=== PATIENT | male | born 1975 | race African-American/Black ===

== ENCOUNTER 2017-11-29 23:52 | Emergency (ER) | payer OTHER ==
[~2017-11-29] VITALS: Ht 185.4 cm; Wt 115.7 kg
[2017-11-30] MEDS ORDERED: WATER PILL (00:02)
[2017-11-30] MEDS ORDERED: Norco 5mg/325mg tab ORAL ONE (00:15)
[2017-11-30] MEDS ORDERED: NAPROXEN500 M1 ORAL (01:15)
--- NOTE | 2017-11-30 01:16 | Emergency Room Report ---
History of Present Illness General Chief Complaint: Headache Source: Patient Present Illness HPI Is a 43-year-old male with no past medical history. He presents with chief complaint of headache for the last day. Throbbing in nature. Started on the left forehead behind her eye going to the back. No nausea no vomiting. No relief with Motrin. Usually get headaches but get better with qazg-jva-irondpl medication. No fever or chills. No focal deficit. Allergies: Coded Allergies: No Known Allergies (Unverified , 11/30/17) Patient History Past Medical History: see triage record, old chart reviewed Past Surgical History: none Pertinent Family History: none Social History: Denies: smoking Immunizations: other Reviewed Nursing Documentation: PMH: Agreed; PSxH: Agreed Nursing Documentation-PMH Hx Hypertension: Yes Review of Systems Eye: Denies: eye pain, blurred vision ENT: Denies: ear pain, nose congestion, throat swelling Respiratory: Denies: cough, shortness of breath Cardiovascular: Denies: chest pain, palpitations Gastrointestinal: Denies: abdominal pain, diarrhea, nausea, vomiting Musculoskeletal: Denies: back pain, joint pain Skin: Denies: rash Neurological: Reports: headache; Denies: numbness Endocrine: Denies: increased thirst, increased urine Hematologic/Lymphatic: Denies: easy bruising All Other Systems: negative except mentioned in HPI Physical Exam Vital Signs Date Time Temp Pulse Resp B/P (MAP) Pulse Ox O2 Delivery O2 Flow Rate FiO2 11/29/17 23:58 99.3 96 16 127/84 95 Room Air 99.3 vitals normal Sp02 EP Interpretation: reviewed, normal General Appearance: well appearing, no apparent distress, alert Head: normocephalic, atraumatic Eyes: bilateral eye PERRL, bilateral eye EOMI ENT: hearing grossly normal, normal pharynx Neck: full range of motion, supple, no meningismus Respiratory: chest non-tender, lungs clear, normal breath sounds Cardiovascular #1: regular rate, rhythm, no murmur Gastrointestinal: normal bowel sounds, non tender, no mass, no organomegaly, no bruit, non-distended Musculoskeletal: back normal, gait/station normal, normal range of motion Psychiatric: mood/affect normal Skin: warm/dry Medical Decision Making Diagnostic Impression: Primary Impression: Headache Qualified Codes: G44.209 - Tension-type headache, unspecified, not intractable ER Course Patient with headache. No evidence of bacterial meningitis, sepsis, pneumonia, CVA or bleed. Better now. We'll discharge home. CT/MRI/US Diagnostic Results CT/MRI/US Diagnostic Results : Imaging Test Ordered: CT head Impression negative per radiologist Last Vital Signs Date Time Temp Pulse Resp B/P (MAP) Pulse Ox O2 Delivery O2 Flow Rate FiO2 11/30/17 00:18 99.3 11/29/17 23:58 96 16 127/84 95 Room Air Status: improved Disposition: HOME, SELF-CARE Condition: Stable Scripts Naproxen* (NAPROXEN*) 500 Mg Tablet. 500 MG ORAL TWICE A DAY, #30 TAB Prov: DEEPAK ALFONSO M.D. 11/30/17 Referrals: ARISTIDES LINDSEY,REFERRING (PCP) Patient Instructions: General Headache Without Cause Additional Instructions: Follow-up with your in 2 to 3 days. Return if worse. DEEPAK ALFONSO M.D. Nov 30, 2017 01:16
[2017-11-30 01:20] VITALS: BP 122/84
[2017-11-30 01:22] VITALS: BP 122/84
--- NOTE | 2017-11-30 09:43 | Diagnostic Imaging Report ---
Indications: Headache for 3 days Technique: Spiral acquisitions obtained through the brain. Angled axial and coronal 5 x 5 mm slices were reconstructed. Total dose length product 1442 mGycm. CTDI vol(s) 70 mGy. Dose reduction achieved using automated exposure control Comparison: None. Findings: Ventricles are mildly prominent. There is a large patent cavum septum lucidum. Axial CSF spaces are within normal limits. No acute intracranial hemorrhage or edema. No mass effect or midline shift. Normal osman-white differentiation. Is intact calvarium. Visualized orbits and sinuses are unremarkable. Impression: Mildly prominent ventricles, probably due to central volume loss Negative for acute intracranial bleed or mass effect Incidental finding of patent cavum septum pellucidum This agrees with the preliminary interpretation provided overnight by [facility] service. The CT scanner at [facility] is accredited by the [employer] and the scans are performed using protocols designed to limit radiation exposure to as low as reasonably achievable to attain images of sufficient resolution adequate for diagnostic evaluation.
== END 2017-11-30 01:23 | disposition home or self-care (01) ==
LOC: EDBD 11-30 00:19 → EMR 11-30 00:19
DX: R51 Headache (principal); I10 Essential (primary) hypertension
CPT/HCPCS: 70450; 99284

== ENCOUNTER 2020-02-08 23:55 | Emergency (ER) | payer OTHER ==
[~2020-02-08] VITALS: Ht 185.4 cm; Wt 123.8 kg
[~2020-02-08 23:55] MED LIST: NAPROXEN500 M1 ORAL; WATER PILL
[2020-02-09 00:25] VITALS: BP 126/82
[2020-02-09] MEDS ORDERED: ZYRTEC10 MG ORAL (00:28)
[2020-02-09] MEDS ORDERED: POLYTRIM OP SOL10 ML BOTH EYES (00:28)
--- NOTE | 2020-02-09 00:33 | Emergency Room Report ---
History of Present Illness General Chief Complaint: Eye Problems Source: Patient Present Illness HPI Patient is a 44-year-old male who presents to the ER complaining of bilateral eye redness and irritation for the past 4 days. He states that he started with his left eye and has now moved to his right eye. He states that there watery and uncomfortable. He denies any visual changes. He states that he has had yellowish discharge from both of his eyes. He states that he does not wear contacts. He denies any fever or chills. 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 Patient History Reviewed Nursing Documentation: PMH: Agreed; PSxH: Agreed Nursing Documentation-PMH Hx Hypertension: Yes Review of Systems All Other Systems: negative except mentioned in HPI Physical Exam Vital Signs Date Time Temp Pulse Resp B/P (MAP) Pulse Ox O2 Delivery O2 Flow Rate FiO2 02/09/20 00:17 98.6 62 19 126/82 (97) 95 Room Air Sp02 EP Interpretation: reviewed, normal General Appearance: no apparent distress, alert, GCS 15, non-toxic Head: normocephalic, atraumatic Eyes: bilateral eye PERRL, bilateral eye EOMI, bilateral eye other - Bilateral conjunctival injection with yellowish discharge no photophobia no scleral icterus ENT: hearing grossly normal, normal pharynx, no angioedema, normal voice Neck: full range of motion, supple/symm/no masses Respiratory: chest non-tender, lungs clear Cardiovascular #1: regular rate, rhythm Gastrointestinal: non tender, overweight Rectal: deferred Musculoskeletal: back normal, gait/station normal Neurologic: motor strength/tone normal, coffee 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 After discussing risks and benefits of further diagnostics, treatment plans, as well as indications for and risks of admission, the patient is agreeable to being discharged home. I have explained that their evaluation and treatment in the emergency department today is an important step towards them achieving better health but that their evaluation today is not intended to replace further evaluation and treatment by a physician in their local clinic. I have explained that while the current findings suggest no immediate life threatening emergency they will require further evaluation and treatment by a physician of their choice in their area. They understand that it will be necessary for them to review the final reports of their ED visit with their clinic physician. We have reviewed indications for return to the Emergency Department. I have explained that additional time may need to pass and/or additional testing as an outpatient may be necessary before a definitive diagnosis can be made. They tell me they are willing to follow up as instructed within the timeframe I recommend. They appear to understand what we discussed. Additionally they understand that if they are unable to be seen by an outpatient physician they are welcome, and in fact should, return to the Emergency Department for a repeat evaluation. The patient is stable at time of discharge. Last Vital Signs Date Time Temp Pulse Resp B/P (MAP) Pulse Ox O2 Delivery O2 Flow Rate FiO2 02/09/20 00:17 98.6 62 19 126/82 (97) 95 Room Air Disposition: HOME, SELF-CARE Condition: Stable Scripts Polymyxin/Trimethoprim (Polytrim Eye Drops) 10 Ml Drops 1 DROP BOTH EYES Q4H for 10 Days, #10 ML Prov: Jackelin Alvarez M.D. 02/09/20 Cetirizine Hcl* (ZYRTEC*) 10 Mg Tablet 10 MG ORAL DAILY, #14 TAB 0 Refills Prov: Jackelin Alvarez M.D. 02/09/20 Patient Instructions: Bacterial Conjunctivitis, [id number], Allergic Conjunctivitis, [id number] Additional Instructions: The patient was provided with discharge instructions, notified to follow-up with a primary care doctor and or specialist in the next 24-48 hours, and to return to the ED if they have worsening of their symptoms. Please note that this report is being documented using [employer]PN technology. This can lead to erroneous entry secondary to incorrect interpretation by the dictating instrument. Jackelin Alvarez M.D. Feb 09, 2020 00:33
[2020-02-09 00:35] VITALS: BP 126/82
== END 2020-02-09 00:35 | disposition home or self-care (01) ==
LOC: EMR 02-09 00:16
DX: H10.9 Unspecified conjunctivitis (principal); I10 Essential (primary) hypertension
CPT/HCPCS: 99282